=== PATIENT | female | born 1985 | race Caucasian/White ===

== ENCOUNTER → 2021-08-16 12:29 | Outpatient (BNVA) | payer MEDICARE, SELFPAY | PROVIDERS: Referring Provider Psychiatry & Neurology Neurology; Visit Provider Psychiatry & Neurology Neurology | DX: G35 Multiple sclerosis (principal); K59.09 Other constipation; R41.89 Other symptoms and signs involving cognitive functions and awareness; R32 Unspecified urinary incontinence; F90.9 Attention-deficit hyperactivity disorder, unspecified type; R13.10 Dysphagia, unspecified | CPT/HCPCS: 99205 ==

== ENCOUNTER 2021-10-28 03:29 | Outpatient (RCR) | payer MEDICARE, SELFPAY ==
[2021-10-13] VITALS (7 sets, daily range): BP systolic 108–126; BP diastolic 67–83; PULSE 94–104; RESP 18–19; TEMP 36.2–37.1; O2SAT 96–100
[2021-10-13] MEDS: Acetaminophen 325 MG TAB 650 MG PO (09:41)
[2021-10-13] MEDS: methylPREDNISolone SUCC 125 MG VIAL 100 MG IVP (09:44)
[2021-10-13] MEDS: diphenhydrAMINE 50 MG/ML VIAL IVP (09:45)
[2021-10-13] MEDS: Normal Saline Flush 10 ML SYR IVP (09:49)
[2021-10-20 05:59] LABS: JC Virus DNA, QN <500 copies/mL; Source PLASMA
[2021-10-28] MEDS: methylPREDNISolone SUCC 125 MG VIAL 100 MG IVP (09:45)
[2021-10-28] MEDS: Acetaminophen 325 MG TAB 650 MG PO (09:45)
[2021-10-28 09:46] VITALS: BP 112/80; PULSE 98; RESP 17; TEMP 36.9; O2SAT 97
[2021-10-28] MEDS: diphenhydrAMINE 50 MG/ML VIAL IVP (09:46)
[2021-10-28 10:25] VITALS: BP 142/78; PULSE 110; RESP 18; TEMP 37; O2SAT 99
[2021-10-28 10:55] VITALS: BP 132/87; PULSE 107; RESP 18; TEMP 37; O2SAT 96
[2021-10-28 11:24] VITALS: BP 124/77; PULSE 101; RESP 16; TEMP 36.9; O2SAT 98
[2021-10-28 11:55] VITALS: BP 123/82; PULSE 101; RESP 17; TEMP 36.8; O2SAT 95
[2021-10-28 12:25] VITALS: BP 118/71; PULSE 109; RESP 17; TEMP 37; O2SAT 100
== END 2021-10-31 23:59 | disposition home or self-care (01) ==
LOC: INF 03:29
PROVIDERS: Visit Provider Psychiatry & Neurology Neurology
DX: G35 Multiple sclerosis (principal)
CPT/HCPCS: 36415; 87799; 96365; 96366; 96413; 96415; J1200; J2350; J2930

== ENCOUNTER → 2022-03-08 09:10 | Outpatient (BNVA) | payer MEDICARE, SELFPAY | PROVIDERS: PCP Family Medicine; Referring Provider Family Medicine; Visit Provider Psychiatry & Neurology Neurology | DX: G35 Multiple sclerosis (principal); R32 Unspecified urinary incontinence; R41.89 Other symptoms and signs involving cognitive functions and awareness; F90.9 Attention-deficit hyperactivity disorder, unspecified type; R13.10 Dysphagia, unspecified; K59.09 Other constipation | CPT/HCPCS: 99215 ==

== ENCOUNTER 2022-04-13 02:13 | Outpatient (RCR) | payer MEDICARE, SELFPAY ==
[2022-04-13] VITALS (7 sets, daily range): BP systolic 113–131; BP diastolic 75–93; PULSE 72–96; RESP 17–18; TEMP 36.3–36.9; O2SAT 96–100
[2022-04-13] MEDS: Acetaminophen 325 MG TAB 650 MG PO (10:26)
[2022-04-13] MEDS: methylPREDNISolone SUCC 125 MG VIAL 100 MG IVP (10:27)
[2022-04-13] MEDS: diphenhydrAMINE 50 MG/ML VIAL IVP (10:27)
[2022-04-13] MEDS: OCRELIZUMAB 600 MG in Normal Saline 500 ML 40 MG IVPB (10:46)
[2022-04-15 13:07] LABS: CD19 4 % (6-24); CD20 4 % (6-24)
== END 2022-04-30 23:59 | disposition home or self-care (01) ==
LOC: INF 02:13
PROVIDERS: PCP Family Medicine; Visit Provider Psychiatry & Neurology Neurology
DX: G35 Multiple sclerosis (principal)
CPT/HCPCS: 36415; 88184; 88185; 96365; 96366; 96374; 96413; 96415; J1200; J2350; J2930

== ENCOUNTER → 2022-09-06 11:01 | Outpatient (BNVA) | payer MEDICARE, SELFPAY | PROVIDERS: PCP Family Medicine; Referring Provider Family Medicine; Visit Provider Psychiatry & Neurology Neurology | DX: G35 Multiple sclerosis (principal); R41.89 Other symptoms and signs involving cognitive functions and awareness; F90.9 Attention-deficit hyperactivity disorder, unspecified type; N39.498 Other specified urinary incontinence; R13.10 Dysphagia, unspecified; K59.09 Other constipation | CPT/HCPCS: 99215 ==

== ENCOUNTER 2022-10-19 03:47 | Outpatient (RCR) | payer MEDICARE, SELFPAY ==
[2022-10-19] VITALS (9 sets, daily range): BP systolic 114–132; BP diastolic 72–89; PULSE 53–97; RESP 18; TEMP 36.4–37.7; O2SAT 95–100
[2022-10-19] MEDS: Acetaminophen 325 MG TAB 650 MG PO (08:54)
[2022-10-19] MEDS: diphenhydrAMINE 50 MG/ML VIAL IVP (08:55)
[2022-10-19] MEDS: methylPREDNISolone SUCC 125 MG VIAL 100 MG IVP (08:55)
[2022-10-19] MEDS: Normal Saline Flush 10 ML SYR IVP (08:56)
[2022-10-19] MEDS: OCRELIZUMAB 600 MG in Normal Saline 500 ML 40 MG IVPB (09:02)
== END 2022-10-31 23:59 | disposition home or self-care (01) ==
LOC: INF 03:47
PROVIDERS: PCP Family Medicine; Visit Provider Psychiatry & Neurology Neurology
DX: G35 Multiple sclerosis (principal)
CPT/HCPCS: 96365; 96366; 96374; 96375; J1200; J2350; J2930

== ENCOUNTER → 2023-03-07 11:14 | Outpatient (BNVA) | payer MEDICARE, SELFPAY | PROVIDERS: PCP Family Medicine; Referring Provider Family Medicine; Visit Provider Psychiatry & Neurology Neurology | DX: G35 Multiple sclerosis (principal); R41.3 Other amnesia; F90.9 Attention-deficit hyperactivity disorder, unspecified type; R32 Unspecified urinary incontinence; K59.09 Other constipation; R13.10 Dysphagia, unspecified | CPT/HCPCS: 99215 ==

== ENCOUNTER 2023-04-19 02:05 | Outpatient (RCR) | payer MEDICARE, MEDICAID, SELFPAY ==
[2023-04-19] VITALS (7 sets, daily range): BP systolic 110–144; BP diastolic 74–88; PULSE 75–94; RESP 17–18; TEMP 37–37.2; O2SAT 97–100
[2023-04-19] MEDS: methylPREDNISolone SUCC 125 MG VIAL 100 MG IVP (10:23)
[2023-04-19] MEDS: Acetaminophen 325 MG TAB 650 MG PO (10:23)
[2023-04-19] MEDS: diphenhydrAMINE 50 MG/ML VIAL IVP (10:23)
[2023-04-19] MEDS: OCRELIZUMAB 600 MG in Normal Saline 500 ML 40 MG IVPB (10:28)
[2023-04-19] MEDS: Normal Saline Flush 10 ML SYR IVP (10:30)
[2023-04-19 11:39] LABS: Abs Immature Grans 0.02 10^3/uL (0.0-0.06); Absolute Basophil Count 0.03 10^3/uL (0.0-0.2); Absolute Eosinophil Count 0.16 10^3/uL (0.0-0.7); Absolute Lymphocyte Count 1.23 10^3/uL (1.2-3.4); Absolute Monocyte Count 0.47 10^3/uL (0.1-0.8); Absolute Neutrophil Count 5.98 10^3/uL (1.2-6.7); Basophils % 0.4; HCT 48.4 % (36.0-46.0); HGB 15.9 g/dL (11.2-15.7); Immature Grans % 0.3; Lymphocytes % 15.6; MCH 30.8 pg (27.0-33.0); MCHC 32.9 % (32.0-36.0); MCV 94 fL (80-95); MPV 10.5 fL (8.0-11.0); Neutrophils % 75.7; Platelet Count 299 10^3/uL (130-400); RBC 5.16 10^6/uL (3.93-5.22); RDW 12.6 % (11.7-14.6); RDW-SD 43.6 fL; WBC 7.89 10^3/uL (4.4-10.8)
[2023-04-19 11:48] LABS: ALT 24 U/L (14-59); AST 17 U/L (15-37); Albumin 3.9 g/dL (3.4-5.0); Alkaline Phosphatase 47 U/L (46-116); Anion Gap 6.3 mmol/L (3-11); BUN 11 mg/dL (7-18); Bilirubin, Total 0.4 mg/dL (0.2-1.0); CO2 28.7 mmol/L (21.0-32.0); CREATININE 0.8 mg/dL (0.55-1.02); Calcium 8.9 mg/dL (8.5-10.1); Chloride 106 mmol/L (98-107); Estimated GFR 96.66 (mL/min/1.73m2); Glucose 80 mg/dL (74-106); Potassium 4.2 mmol/L (3.5-5.1); Sodium 141 mmol/L (136-145); Total Protein 7.5 g/dL (6.4-8.2)
[2023-04-20 09:42] LABS: IgA 140 mg/dL (85-499); IgG 916 mg/dL (610-1616); IgM 94 mg/dL (35-242)
== END 2023-04-30 23:59 | disposition home or self-care (01) ==
LOC: INF 02:05
PROVIDERS: PCP Family Medicine; Visit Provider Psychiatry & Neurology Neurology
DX: G35 Multiple sclerosis (principal)
CPT/HCPCS: 36415; 80053; 82784; 96365; 96366; 85025; J1200; J2350; J2930

== ENCOUNTER → 2023-06-06 12:38 | Outpatient (BNVA) | payer MEDICARE, MEDICAID, SELFPAY | PROVIDERS: PCP Family Medicine; Visit Provider Psychiatry & Neurology Neurology | DX: R41.3 Other amnesia (principal); R25.2 Cramp and spasm; G35 Multiple sclerosis; F90.9 Attention-deficit hyperactivity disorder, unspecified type; R32 Unspecified urinary incontinence; K59.09 Other constipation; R13.10 Dysphagia, unspecified | CPT/HCPCS: 99214 ==

== ENCOUNTER 2023-10-23 03:32 | Outpatient (RCR) | payer MEDICARE, MEDICAID, SELFPAY ==
[2023-10-23] VITALS (7 sets, daily range): BP systolic 114–138; BP diastolic 81–90; PULSE 69–96; RESP 18; TEMP 36.3–36.8; O2SAT 93–97
[2023-10-23] MEDS: Acetaminophen 325 MG TAB 650 MG PO (10:11)
[2023-10-23] MEDS: methylPREDNISolone SUCC 125 MG VIAL IV (10:12)
[2023-10-23] MEDS: diphenhydrAMINE 50 MG/ML VIAL IV (10:12)
[2023-10-23 10:13] LABS: Abs Immature Grans 0.02 10^3/uL (0.0-0.06); Absolute Basophil Count 0.05 10^3/uL (0.0-0.2); Absolute Eosinophil Count 0.19 10^3/uL (0.0-0.7); Absolute Lymphocyte Count 1.38 10^3/uL (1.2-3.4); Absolute Monocyte Count 0.49 10^3/uL (0.1-0.8); Absolute Neutrophil Count 5.37 10^3/uL (1.2-6.7); Basophils % 0.7; Eosinophils % 2.5; HCT 46.4 % (36.0-46.0); HGB 15.5 g/dL (11.2-15.7); Immature Grans % 0.3; Lymphocytes % 18.4; MCH 29.9 pg (27.0-33.0); MCHC 33.4 % (32.0-36.0); MCV 89 fL (80-95); MPV 9.9 fL (8.0-11.0); Monocytes % 6.5; Neutrophils % 71.6; Platelet Count 303 10^3/uL (130-400); RBC 5.19 10^6/uL (3.93-5.22); RDW 12.3 % (11.7-14.6); RDW-SD 40.8 fL
[2023-10-23] MEDS: OCRELIZUMAB 600 MG in Normal Saline 500 ML 300 MG IVPB (10:29)
[2023-10-23] MEDS: Normal Saline Flush 10 ML SYR IVP (10:30)
[2023-10-23 10:36] LABS: ALT 29 U/L (14-59); AST 13 U/L (15-37); Albumin 3.7 g/dL (3.4-5.0); Alkaline Phosphatase 41 U/L (46-116); Anion Gap 12.5 mmol/L (3-11); BUN 15 mg/dL (7-18); Bilirubin, Total 0.3 mg/dL (0.2-1.0); CO2 22.5 mmol/L (21.0-32.0); CREATININE 0.9 mg/dL (0.55-1.02); Calcium 9.2 mg/dL (8.5-10.1); Chloride 105 mmol/L (98-107); Estimated GFR 83.92 (mL/min/1.73m2); Glucose 112 mg/dL (74-106); Potassium 3.8 mmol/L (3.5-5.1); Sodium 140 mmol/L (136-145); Total Protein 7.2 g/dL (6.4-8.2)
[2023-10-24 09:19] LABS: IgA 135 mg/dL (85-499); IgG 926 mg/dL (610-1616); IgM 78 mg/dL (35-242)
[2023-10-24 14:23] LABS: CD19 4 % (6-24); CD20 4 % (6-24)
== END 2023-10-31 23:59 | disposition home or self-care (01) ==
LOC: INF 03:32
PROVIDERS: PCP Family Medicine; Visit Provider Psychiatry & Neurology Neurology
DX: G35 Multiple sclerosis (principal)
CPT/HCPCS: 36415; 80053; 82784; 88184; 88185; 96365; 96366; 85025; J1200; J2350; J2930

== ENCOUNTER → 2023-11-13 12:48 | Outpatient (BNVA) | payer MEDICARE, MEDICAID, SELFPAY | PROVIDERS: PCP Family Medicine; Visit Provider Psychiatry & Neurology Neurology | DX: G35 Multiple sclerosis (principal); R41.89 Other symptoms and signs involving cognitive functions and awareness; K59.09 Other constipation; R32 Unspecified urinary incontinence; F90.9 Attention-deficit hyperactivity disorder, unspecified type; R13.10 Dysphagia, unspecified | CPT/HCPCS: 99214 ==

== ENCOUNTER 2024-05-13 02:22 | Outpatient (RCR) | payer MEDICARE, MEDICAID, SELFPAY ==
[2024-05-13] VITALS (7 sets, daily range): BP systolic 112–132; BP diastolic 67–87; PULSE 82–109; RESP 17–18; TEMP 36–37.1; O2SAT 97–100
[2024-05-13] MEDS: diphenhydrAMINE 50 MG/ML VIAL IVP (08:57)
[2024-05-13] MEDS: Normal Saline Flush 10 ML SYR IVP (08:57)
[2024-05-13] MEDS: methylPREDNISolone SUCC 125 MG VIAL IV (08:57)
[2024-05-13] MEDS: Acetaminophen 325 MG TAB 650 MG PO (08:57)
[2024-05-13] MEDS: OCRELIZUMAB 600 MG in Normal Saline 500 ML 86.667 MG IVPB (09:12)
[2024-05-13 09:15] LABS: Abs Immature Grans 0.03 10^3/uL (0.0-0.06); Absolute Basophil Count 0.03 10^3/uL (0.0-0.2); Absolute Eosinophil Count 0.01 10^3/uL (0.0-0.7); Absolute Lymphocyte Count 1.29 10^3/uL (1.2-3.4); Absolute Monocyte Count 0.41 10^3/uL (0.1-0.8); Absolute Neutrophil Count 5.41 10^3/uL (1.2-6.7); Basophils % 0.4 %; Eosinophils % 0.1 %; HCT 45.5 % (36.0-46.0); Immature Grans % 0.4 %; MCH 30.3 pg (27.0-33.0); MCV 92 fL (80-95); MPV 9.9 fL (8.0-11.0); Monocytes % 5.7 %; Neutrophils % 75.4 %; Platelet Count 315 10^3/uL (130-400); RBC 4.95 10^6/uL (3.93-5.22); RDW 12.5 % (11.7-14.6); RDW-SD 42.4 fL; WBC 7.18 10^3/uL (4.4-10.8)
[2024-05-13 09:36] LABS: ALT 26 U/L (14-59); AST 12 U/L (15-37); Albumin 3.4 g/dL (3.4-5.0); Alkaline Phosphatase 48 U/L (46-116); Anion Gap 12.8 mmol/L (3-11); BUN 12 mg/dL (7-18); Bilirubin, Total 0.32 mg/dL (0.2-1.0); CO2 20.2 mmol/L (21.0-32.0); CREATININE 0.9 mg/dL (0.55-1.02); Calcium 8.7 mg/dL (8.5-10.1); Chloride 108 mmol/L (98-107); Glucose 107 mg/dL (74-106); Sodium 141 mmol/L (136-145); Total Protein 6.9 g/dL (6.4-8.2)
[2024-05-14 09:28] LABS: IgA 124 mg/dL (85-499); IgG 788 mg/dL (610-1616); IgM 77 mg/dL (35-242)
[2024-05-14 13:50] LABS: CD19 3 % (6-24); CD20 3 % (6-24)
== END 2024-05-31 23:59 | disposition home or self-care (01) ==
LOC: INF 02:22
PROVIDERS: PCP Family Medicine; Visit Provider Psychiatry & Neurology Neurology
DX: G35 Multiple sclerosis (principal)
CPT/HCPCS: 36415; 80053; 82306; 82784; 88184; 88185; 96365; 96366; 85025; J1200; J2350; J2919

== ENCOUNTER 2024-11-26 03:02 | Outpatient (RCR) | payer MEDICARE, MEDICAID, SELFPAY ==
[2024-11-26] MEDS: diphenhydrAMINE 50 MG/ML VIAL IVP (09:05)
[2024-11-26] MEDS: Acetaminophen 325 MG TAB 650 MG PO (09:05)
[2024-11-26] MEDS: methylPREDNISolone SUCC 125 MG VIAL IVP (09:05)
[2024-11-26] MEDS: Normal Saline Flush 5 ML SYR IVP (09:06)
[2024-11-26] MEDS: Normal Saline Flush 10 ML SYR IVP ×2 (09:06→09:35)
[2024-11-26 09:24] LABS: Abs Immature Grans 0.02 10^3/uL (0.0-0.06); Absolute Basophil Count 0.03 10^3/uL (0.0-0.2); Absolute Eosinophil Count 0.11 10^3/uL (0.0-0.7); Absolute Lymphocyte Count 1.32 10^3/uL (1.2-3.4); Absolute Monocyte Count 0.48 10^3/uL (0.1-0.8); Absolute Neutrophil Count 6.07 10^3/uL (1.2-6.7); Basophils % 0.4 %; Eosinophils % 1.4 %; HCT 47.5 % (36.0-46.0); Immature Grans % 0.2 %; Lymphocytes % 16.4 %; MCH 30.2 pg (27.0-33.0); MCHC 33.7 % (32.0-36.0); MCV 90 fL (80-95); Neutrophils % 75.6 %; Platelet Count 349 10^3/uL (130-400); RDW 12.9 % (11.7-14.6); RDW-SD 42.6 fL; WBC 8.03 10^3/uL (4.4-10.8)
[2024-11-26] MEDS: OCRELIZUMAB 600 MG in Normal Saline 500 ML 100 MG IVPB (09:30)
[2024-11-26 09:37] VITALS: BP 141/98; PULSE 79; RESP 18; TEMP 36.7; O2SAT 100
[2024-11-26 09:59] VITALS: BP 137/89; PULSE 83; RESP 18; TEMP 36.7; O2SAT 98
[2024-11-26 10:01] LABS: ALT 36 U/L (14-59); AST 19 U/L (15-37); Albumin 3.8 g/dL (3.4-5.0); Alkaline Phosphatase 58 U/L (46-116); Anion Gap 10.6 mmol/L (3-11); BUN 15 mg/dL (7-18); Bilirubin, Total 0.39 mg/dL (0.2-1.0); CO2 23.4 mmol/L (21.0-32.0); CREATININE 0.9 mg/dL (0.55-1.02); Chloride 109 mmol/L (98-107); Glucose 110 mg/dL (74-106); Potassium 3.9 mmol/L (3.5-5.1); Sodium 143 mmol/L (136-145); Total Protein 7.2 g/dL (6.4-8.2); Vitamin D 25 Total 72.5 ng/mL (30-100)
[2024-11-26 10:10] VITALS: BP 124/75; PULSE 85; RESP 18; TEMP 36.9; O2SAT 96
[2024-11-26 10:41] VITALS: BP 134/89; PULSE 83; RESP 18; TEMP 36.7; O2SAT 97
[2024-11-26 11:14] VITALS: BP 137/90; PULSE 77; RESP 18; TEMP 36.8; O2SAT 97
[2024-11-26 11:47] VITALS: BP 134/83; PULSE 85; RESP 18; TEMP 36.9; O2SAT 98
[2024-11-27 09:00] LABS: IgA 126 mg/dL (85-499); IgG 761 mg/dL (610-1616); IgM 75 mg/dL (35-242)
[2024-11-27 11:56] LABS: CD19 3 % (6-24); CD20 3 % (6-24)
== END 2024-11-28 23:59 | disposition home or self-care (01) ==
LOC: INF 03:02
PROVIDERS: PCP Family Medicine; Visit Provider Psychiatry & Neurology Neurology
DX: G35 Multiple sclerosis (principal); Z79.899 Other long term (current) drug therapy
CPT/HCPCS: 80053; 82306; 82784; 88184; 88185; 96365; 96366; 96374; 96375; 85025; J1200; J2350; J2919

== ENCOUNTER → 2024-12-23 12:17 | Outpatient (BNVA) | payer MEDICARE, MEDICAID, SELFPAY | PROVIDERS: PCP Family Medicine; Visit Provider Psychiatry & Neurology Neurology | DX: G35 Multiple sclerosis (principal); K59.09 Other constipation; R41.89 Other symptoms and signs involving cognitive functions and awareness; R32 Unspecified urinary incontinence; F90.9 Attention-deficit hyperactivity disorder, unspecified type; R13.10 Dysphagia, unspecified; R26.0 Ataxic gait | CPT/HCPCS: 99214 ==

== ENCOUNTER 2025-06-08 03:44 | Outpatient (CLI) | payer MEDICARE, MEDICAID, SELFPAY ==
[2025-06-08] VITALS (8 sets, daily range): BP systolic 118–147; BP diastolic 78–90; PULSE 61–100; RESP 18; TEMP 36.4–36.7; O2SAT 95–100
[2025-06-08] MEDS: Acetaminophen 325 MG TAB 650 MG PO (09:21)
[2025-06-08] MEDS: diphenhydrAMINE 50 MG/ML VIAL IVP (09:22)
[2025-06-08] MEDS: Normal Saline Flush 10 ML SYR IVP (09:22)
[2025-06-08] MEDS: methylPREDNISolone SUCC 125 MG VIAL IVP (09:22)
[2025-06-08 09:31] LABS: Abs Immature Grans 0.03 10^3/uL (0.0-0.06); HCT 42.2 % (36.0-46.0); HGB 14.0 g/dL (11.2-15.7); Immature Grans % 0.4 %; MCH 30.0 pg (27.0-33.0); MCHC 33.2 % (32.0-36.0); MCV 90 fL (80-95); MPV 9.9 fL (8.0-11.0); Platelet Count 343 10^3/uL (130-400); RBC 4.67 10^6/uL (3.93-5.22); RDW 13.1 % (11.7-14.6); RDW-SD 43.6 fL; WBC 8.26 10^3/uL (4.4-10.8)
[2025-06-08] MEDS: OCRELIZUMAB 600 MG in Normal Saline 500 ML 34.667 MG IVPB (09:49)
[2025-06-08 09:59] LABS: ALT 29 U/L (14-59); AST 15 U/L (15-37); Albumin 3.7 g/dL (3.4-5.0); Alkaline Phosphatase 44 U/L (46-116); Anion Gap 9.7 mmol/L (3-11); BUN 14 mg/dL (7-18); Bilirubin, Total 0.3 mg/dL (0.2-1.0); CO2 23.3 mmol/L (21.0-32.0); Calcium 9.1 mg/dL (8.5-10.1); Chloride 107 mmol/L (98-107); Estimated GFR 95.46 (mL/min/1.73m2); Glucose 100 mg/dL (74-106); Potassium 4.2 mmol/L (3.5-5.1); Sodium 140 mmol/L (136-145); Total Protein 7.0 g/dL (6.4-8.2)
[2025-06-09 16:50] LABS: CD19 2 % (6-24); CD20 2 % (6-24)
== END 2025-06-08 03:45 | disposition home or self-care (01) ==
LOC: INF 03:44
PROVIDERS: PCP Family Medicine; Visit Provider Psychiatry & Neurology Neurology
DX: G35 Multiple sclerosis (principal)
CPT/HCPCS: 36415; 80053; 82784; 88184; 88185; 96365; 96366; 85025; J1200; J2350; J2919

== ENCOUNTER → 2025-07-29 09:14 | Outpatient (BNVA) | payer MEDICARE, MEDICAID, SELFPAY | PROVIDERS: PCP Family Medicine; Visit Provider Psychiatry & Neurology Neurology | DX: G35.D Multiple sclerosis, unspecified (principal); K59.09 Other constipation; R41.89 Other symptoms and signs involving cognitive functions and awareness; R32 Unspecified urinary incontinence; F90.9 Attention-deficit hyperactivity disorder, unspecified type; R13.10 Dysphagia, unspecified; R26.0 Ataxic gait | CPT/HCPCS: 99214 ==